=== PATIENT | female | born 1985 | race Caucasian/White ===

== ENCOUNTER 2022-08-20 10:30 | Emergency (ER) | payer OTHER, SELFPAY ==
[2022-08-20 10:40] VITALS: BP 121/81; PULSE 90; RESP 18; TEMP 36.8; O2SAT 100
--- NOTE | 2022-08-20 11:13 | ED.URI ---
HPI - URI/Sore Throat General Chief Complaint: Upper Respiratory Infection Stated Complaint: Sore Throat,Bilateral Ear Irritation Time Seen by Provider: 08/20/22 11:05 Source: patient Mode of arrival: ambulatory Limitations: no limitations History of Present Illness HPI Narrative: Patient presents today complaining of a sore throat and bilateral ear pain since yesterday with fever up to 100.9. Denies cough, congestion, rhinorrhea, or any additional symptoms. She currently rates her pain 6/10 and has been taking DayQuil and NyQuil with some mild relief. No recent antibiotic use. Related Data Allergies Allergy/AdvReac Type Severity Reaction Status Date / Time No Known Allergies Allergy Verified 08/20/22 10:55 Review of Systems Review of Systems: CONSTITUTIONAL: Denies body aches, chills, or sweats.+ fever EYES: Denies visual changes, redness, or discharge. ENT: Denies rhinorrhea, congestion. + sore throat, bilateral ear pain CARDIOVASCULAR: Denies chest pain, palpitations, or edema. RESPIRATORY: Denies cough or dyspnea. GASTROINTESTINAL: Denies abdominal pain, nausea, vomiting, or diarrhea. GENITOURINARY: Denies dysuria or hematuria. SKIN: Denies rash, itching, or wounds. MUSCULOSKELETAL: Denies back pain, joint pain, or myalgia. NEUROLOGIC: Denies headache, numbness, tingling, or weakness. PSYCH: Denies depression or anxiety. [facility] Past Medical History Medical History Asthma Seasonal allergies Surgical History Surgical History Previous section (~2014) [place] teeth removed (~2006) Family History Family History Father Hypertension Heart disease Mother No problems noted. Grandparent Cerebrovascular accident Malignant neoplasm of prostate Glaucoma Social History Social History Smoking status: Former smoker Tobacco type: cigarettes Second hand tobacco smoke exposure: Yes Smoking end date: 10/05/13 Alcohol intake: current Drinks per week: 4 Alcohol use details: drinks wine weekly Comments At time of signature, I have reviewed and agree with nursing past medical, surgical, social and family history unless otherwise noted. Please see nursing chart for further information. There is no relevant family history pertinent to the presenting complaint Exam Narrative: GENERAL: Mildly ill-appearing, well-nourished, and in no acute distress. HEAD: Normocephalic, atraumatic. EYES: EOMI. No redness or drainage. Conjunctivae normal. ENT: Mucous membranes pink and moist. Nares clear. No rhinorrhea. TMs normal bilaterally. Throat erythematous and edematous. Tonsils 3+ with white exudate. Uvula midline. NECK: Normal AROM. Supple. Bilateral anterior cervical chain lymphadenopathy. CHEST: No respiratory distress. Clear to auscultation. HEART: Regular rate and rhythm. No murmur appreciated. Normal peripheral pulses. EXTREMITIES: Normal range of motion. No edema. SKIN: Warm, dry, no rash. Capillary refill normal. Normal skin turgor. NEURO: No focal deficits. Alert and oriented x3. Gait steady. PSYCH: Normal affect. No signs of depression or anxiety. Course Course Emergency Course: We are out of strep swabs at this time. Due to patient's symptoms and exam, I feel strongly that she has strep throat and will be treated accordingly. Level of Care: Express Care Visit Vital Signs Vital signs: Vital Signs Temperature 98.3 F 08/20/22 10:40 Pulse Rate 90 08/20/22 10:40 Respiratory Rate 18 08/20/22 10:40 Blood Pressure 121/81 08/20/22 10:40 Pulse Oximetry 100 08/20/22 10:40 Oxygen Delivery Room Air 08/20/22 10:40 Temperature 98.3 F 08/20/22 10:40 Pulse Rate 90 08/20/22 10:40 Respiratory Rate 18 08/20/22 10:40 B
== END 2022-08-20 11:24 | disposition home or self-care (01) ==
PROVIDERS: Emergency Provider Nurse Practitioner; PCP Physician Assistant
DX: J02.0 Streptococcal pharyngitis (principal); J45.909 Unspecified asthma, uncomplicated; Z87.891 Personal history of nicotine dependence
CPT/HCPCS: 99213; G0463

== ENCOUNTER 2023-09-05 14:53 | Emergency (ER) | payer OTHER, SELFPAY ==
[2023-09-05 15:20] VITALS: BP 144/103; PULSE 102; RESP 18; TEMP 37; O2SAT 100
--- NOTE | 2023-09-05 15:30 | ED.URI ---
HPI - URI/Sore Throat General Chief Complaint: Upper Respiratory Infection Stated Complaint: sorethroat Time Seen by Provider: 09/05/23 15:30 Source: patient Mode of arrival: ambulatory Limitations: no limitations History of Present Illness HPI Narrative: Hortencia is a 37 year old female patient presenting to clinic today with complaints of a sore throat that started last night. Denies any fever or chills. MD elicited complaint: sore throat and nasal congestion Related Data Allergies Allergy/AdvReac Type Severity Reaction Status Date / Time No Known Allergies Allergy Verified 08/20/22 10:55 Review of Systems Review of Systems: Pertinent positives per HPI. Patient denies any fever, chills, rash, headache, visual changes, dizziness, cough, shortness of breath, chest pain, palpitations, nausea, vomiting, diarrhea, constipation, abdominal pain, or any urinary issues. PMFSH Past Medical History Medical History Asthma Seasonal allergies Surgical History Surgical History Previous section (~2014) [place] teeth removed (~2006) Family History Family History Father Hypertension Heart disease Mother No problems noted. Grandparent Cerebrovascular accident Malignant neoplasm of prostate Glaucoma Social History Social History Smoking status: Former smoker Tobacco type: cigarettes Second hand tobacco smoke exposure: Yes Smoking end date: 10/05/13 Alcohol intake: current Drinks per week: 4 Alcohol use details: drinks wine weekly Comments At the time of my signature, I reviewed and agree with the nursing past medical, surgical, social, and family history. There is no relevant family history pertinent to the patient complaint. Exam Narrative: General: Well-developed, well nourished, in no apparent distress Head: Normocephalic, atraumatic Eyes: Pupils equally round and reactive to light bilaterally, EOM intact, sclera and conjunctive clear, no discharge, lids normal Ears: TMs intact and clear, ear canals clear, no drainage, grossly hearing normal. Nose: Nares patent, clear nasal discharge, no inflammation, no sinus tenderness. Mouth: Oral pharynx red with bilateral tonsillar enlarged without lesions or masses, good dentition, MMM. Neck: Supple, trachea midline, enlargement of anterior cervical nodes, no thyroid masses or goiter palpable. Cardio: Regular rate and rhythm, s1 and s2 normal, no murmur appreciated. Resp: Clear to auscultation bilaterally, no rhonchi, rales, wheezing or rubs Course Course Emergency Course: Portions of this record may have been created with voice recognition software. Level of Care: Express Care Visit Vital Signs Vital signs: Vital Signs Temperature 37.0 C 09/05/23 15:20 Pulse Rate 102 H 09/05/23 15:20 Respiratory Rate 18 09/05/23 15:20 Blood Pressure 144/103 H 09/05/23 15:20 Pulse Oximetry 100 09/05/23 15:20 Oxygen Delivery Room Air 09/05/23 15:20 Temperature 37.0 C 09/05/23 15:20 Pulse Rate 102 H 09/05/23 15:20 Respiratory Rate 18 09/05/23 15:20 Blood Pressure 144/103 H 09/05/23 15:20 Pulse Oximetry 100 09/05/23 15:20 Oxygen Delivery Room Air 09/05/23 15:20 Vital signs reviewed MDM - URI/Sore Throat MDM Narrative Medical decision making narrative: At the time of visit patient is resting comfortably on the exam table. Patient appears to be nontoxic. Strep test was positive in the clinic today. Prescription for amoxicillin was sent to the pharmacy supportive measures were discussed with the patient and they voiced understanding discharge instructions and agrees to treatment plan. Return precautions reviewed Differential Diagnosis Differential diagnosis: Likely
== END 2023-09-05 15:52 | disposition home or self-care (01) ==
PROVIDERS: Emergency Provider Nurse Practitioner Family; PCP Family Medicine
DX: J02.0 Streptococcal pharyngitis (principal); Z87.891 Personal history of nicotine dependence
CPT/HCPCS: 87880; 99213; G0463

== ENCOUNTER 2024-01-22 08:54 | Emergency (ER) | payer OTHER, SELFPAY ==
[2024-01-22 09:18] VITALS: BP 134/87; PULSE 101; RESP 16; TEMP 36.8; O2SAT 99
--- NOTE | 2024-01-22 09:18 | ED.URI ---
HPI - URI/Sore Throat General Chief Complaint: Upper Respiratory Infection Stated Complaint: sorethroat Time Seen by Provider: 01/22/24 09:18 History of Present Illness HPI Narrative: 38-year-old female presented for complaint of sore throat, onset last night. She states she woke in the night due to the pain, took ibuprofen and woke in the morning with sweating. Denies shortness of breath, wheezing, nausea, vomiting, diarrhea or lethargy. Denies known sick contacts. History of strep throat states it feels similar. Related Data Allergies Allergy/AdvReac Type Severity Reaction Status Date / Time No Known Allergies Allergy Verified 01/22/24 09:11 Review of Systems Review of Systems: CONSTITUTIONAL: Denies body aches, reports fever, chills, sweats. EYES: Denies visual changes, redness, or discharge. ENT: Reports sore throat Denies rhinorrhea, congestion, or otalgia. CARDIOVASCULAR: Denies chest pain, palpitations, or edema. RESPIRATORY: Denies dyspnea. GASTROINTESTINAL: Denies abdominal pain, nausea, vomiting, or diarrhea. SKIN: Denies rash, itching, or wounds. MUSCULOSKELETAL: Denies back pain, joint pain, or myalgia. NEUROLOGIC: Denies headache PMFSH Past Medical History Medical History Asthma Seasonal allergies Surgical History Surgical History Previous section (~2014) [place] teeth removed (~2006) Family History Family History Father Hypertension Heart disease Mother No problems noted. Grandparent Cerebrovascular accident Malignant neoplasm of prostate Glaucoma Social History Social History Smoking status: Former smoker Tobacco type: cigarettes Second hand tobacco smoke exposure: Yes Smoking end date: 10/05/13 Alcohol intake: current Drinks per week: 4 Alcohol use details: drinks wine weekly Exam Narrative: GENERAL: well-appearing, no acute distress. EYES: conjunctivae clear ENT: Mucous membranes moist. TMs pearly davis with normal light reflex bilaterally; no tragal tenderness. Oropharynx erythematous without lesions. Tonsils enlarged 1+ and without exudate. No drooling, no hoarseness, no trismus, uvula midline. No tripod positioning, hot potato voice, or soft palate swelling. NECK: Supple. right anterior cervical lymphadenopathy CHEST: Clear to auscultation, breath sounds equal. No respiratory distress, speaks in full sentences. HEART: Regular rate and rhythm. No murmur heard. SKIN: Warm, dry, no rash. NEURO: Alert and oriented x3. Course Course Emergency Course: Patient is aware of diagnosis, understands and agrees to treatment plan. Anticipatory guidance given. Patient agrees to follow-up as directed and is aware of reasons to seek care at the emergency department. Portions of this record may have been created with voice recognition software Level of Care: Express Care Visit Vital Signs Vital signs: Vital Signs Temperature 98.2 F 01/22/24 09:18 Pulse Rate 101 H 01/22/24 09:18 Respiratory Rate 16 01/22/24 09:18 Blood Pressure 134/87 01/22/24 09:18 Pulse Oximetry 99 01/22/24 09:18 Oxygen Delivery Room Air 01/22/24 09:18 Temperature 98.2 F 01/22/24 09:18 Pulse Rate 101 H 01/22/24 09:18 Respiratory Rate 16 01/22/24 09:18 Blood Pressure 134/87 01/22/24 09:18 Pulse Oximetry 99 01/22/24 09:18 Oxygen Delivery Room Air 01/22/24 09:18 MDM - URI/Sore Throat MDM Narrative Medical decision making narrative: POS strep result reviewed with pt. Advise supportive treatments. Patient is appropriate for outpatient treatment and follow-up. Differential Diagnosis Differential diagnosis: Likely upper respiratory infection, viral infection and pharyngitis Lab Data Labs: Strep Sc
== END 2024-01-22 09:36 | disposition home or self-care (01) ==
PROVIDERS: Emergency Provider Nurse Practitioner Family
DX: J02.0 Streptococcal pharyngitis (principal); Z87.891 Personal history of nicotine dependence; J45.909 Unspecified asthma, uncomplicated
CPT/HCPCS: 87880; 99213; G0463

== ENCOUNTER 2024-06-21 16:02 | Outpatient (CLI) | payer OTHER, SELFPAY ==
--- NOTE | ~2024-06-21 | XR_ITS ---
CHEST RADIOGRAPH, PA AND LATERAL CLINICAL HISTORY: R06.00 - Dyspnea, unspecified . COMPARISON: None available TECHNIQUE: PA and lateral views of the chest. FINDINGS The cardiomediastinal silhouette is unremarkable. Increased density projecting over the left lower lobe, which on lateral view suggests superior segmen t of the left lower lobe. The remainder of the lungs are clear. Visualized osseous structures and soft tissues are unremarkable. IMPRESSION: Possible early infiltrate within the superior segment of the left lower lobe, as detailed above. Reviewed, dictated and finalized at location A. IMPRESSION: Possible early infiltrate within the superior segment of the left lower lobe, a s detailed above.
== END 2024-06-21 16:03 | disposition home or self-care (01) ==
PROVIDERS: PCP Family Medicine; Visit Provider Family Medicine
DX: R06.00 Dyspnea, unspecified (principal)
CPT/HCPCS: 71046

== ENCOUNTER 2024-06-21 16:28 | Outpatient (CLI) | payer OTHER, SELFPAY ==
[2024-06-21 17:34] LABS: Influenza A QL RT-PCR Negative (Negative); Influenza B QL RT-PCR Negative (Negative); RSV RNA, RT-PCR Negative (Negative); SARS-CoV-2 RNA PCR Negative (Negative)
== END 2024-06-21 16:29 | disposition home or self-care (01) ==
LOC: ANHLAB 16:29
PROVIDERS: PCP Family Medicine; Visit Provider Family Medicine
DX: J06.9 Acute upper respiratory infection, unspecified (principal); Z20.822 Contact with and (suspected) exposure to COVID-19
CPT/HCPCS: 87637

== ENCOUNTER 2025-05-08 08:50 | Emergency (ER) | payer OTHER, SELFPAY ==
--- NOTE | ~2025-05-08 | CT_ITS ---
EXAMINATION: CT brain wo con DATE: 05/08/2025 09:33 INDICATION: Dizziness TECHNIQUE: Computed tomography (CT) of the head was performed without intravenous contrast. The dose-length product was 605.33 mGy-cm. COMPARISON: None FINDINGS: No acute intracranial hemorrhage. No mass effect. No midline shift. No hydrocephalus. No skull fracture. Visualized paranasal sinuses and mastoid air cells are clear. IMPRESSION: 1. No acute intracranial hemorrhage. No mass effect. Reviewed, dictated and finalized at location Q.
--- NOTE | ~2025-05-08 | XR_ITS ---
EXAMINATION: XR chest 2V 05/08/2025 09:44 INDICATION: Shortness of breath. TECHNIQUE:Frontal and lateral images of the chest were obtained. COMPARISON: 06/21/2024 FINDINGS: Small opacities in the lower lungs The cardiomediastinal silhouette is within normal limits. There are no pleural effusions. There is no pneumothorax suspected. IMPRESSION: 1: Small opacities in the mid and lower lungs which represents atelectasis/scarring or infiltrates. Reviewed, dictated and finalized at location Q. IMPRESSION: 1: Small opacities in the mid and lower lungs which represents atelectasis/sca rring or infiltrates.
[2025-05-08 08:52] VITALS: BP 155/94; PULSE 93; RESP 20; TEMP 36.7; O2SAT 99
[2025-05-08 09:00] VITALS: PULSE 93; O2SAT 100
--- NOTE | 2025-05-08 09:16 | ECG_ITS ---
Test Date: 2025-05-08 12:04:40 Measurements Intervals [place] Rate: 84 P: 25 [place]: 153 QRS: -6 QRSD: 85 T: 6 QT: 359 QTc: 425 Interpretive Statements SINUS RHYTHM WITH SINUS ARRHYTHMIA POSSIBLE ANTERIOR MYOCARDIAL INFARCTION , OF INDETERMINATE AGE BORDERLINE ST-T WAVE ABNORMALITY- INFERIOR LEADS BASELINE ARTIFACT- V5-V6 ABNORMAL ECG No previous ECG available for comparison Electronically Signed On 05-08-2025 13:00:09 CDT by Yefri Aguila D.O.
--- NOTE | 2025-05-08 09:16 | ED_ITS ---
HPI - SOB/Dyspnea General Chief Complaint: Shortness of Breath/Dyspnea Stated Complaint: DYSPNEA Time Seen by Provider: 05/08/25 08:51 History of Present Illness HPI Narrative: 39-year-old female no significant medical history on file presents ER with complaints of shortness of breath. Patient reports yesterday having a posterior headache with some mild dizziness. States she woke up this morning with resolved headache but the dizziness was worse. States the dizziness is exacerbated with the of positional changes. Denies vision changes or nausea. Denies striking her head. States the dizziness this morning was so profound that it caused her to get short of breath. Patient admits to breathing quickly, and then experiencing numbness and pain in her hands and her feet. States when EMS arrived, the rapid breathing had improved. Patient denies chest pain, syncope. Denies unilateral weakness. Related Data Allergies Allergy/AdvReac Type Severity Reaction Status Date / Time No Known Allergies Allergy Verified 05/08/25 09:06 Review of Systems 2 Review of Systems: All systems reviewed & are unremarkable except as noted in HPI and below PMFSH Past Medical History Medical History Asthma Seasonal allergies Surgical History Surgical History [place] teeth removed (~2006) Previous section (~2014) Family History Family History Father Hypertension Heart disease Mother No problems noted. Grandparent Cerebrovascular accident Malignant neoplasm of prostate Glaucoma Social History Social History Smoking status: Former smoker Tobacco type: cigarettes Second hand tobacco smoke exposure: Yes Smoking end date: 10/05/13 Alcohol intake: current Drinks per week: 4 Alcohol use details: drinks wine weekly Exam 2 Const: General: healthy appearing and alert Nutritional Appearance: well nourished and obese Orientation/consciousness: patient oriented x3 L imitations: no limitations HENMT: Head: normal to inspection Ears: TM's normal bilaterally Face and sinus: normal facial exam Eyes: Conjunctivae: conjunctivae normal Pupils: Equal, round and reactive pupils present EOM: EOMs intact bilaterally Direct Ophthalmoscopy: no photophobia Resp: Effort & Inspection: normal respiratory effort Auscultation: clear to auscultation bilaterally Cardio: Rate: regular rate Rhythm: regular rhythm Skin: General skin exam: normal color Neuro: General: patient oriented x3, moves all extremities and CN's II-XI intact bilaterally Cranial nerves: Yes Nystagmus not present Speech: n ormal speech Gait exam (Neuro): Normal gait present Extrem: General: normal to inspection Psych: Mental Status: mental status grossly normal Affect: normal affect Attitude: cooperative Course Vital Signs Vital signs: Vital Signs Temperature 36.7 C 05/08/25 08:52 Pulse Rate 93 05/08/25 08:52 Respiratory Rate 20 05/08/25 08:52 Blood Pressure 155/94 H 05/08/25 08:52 Pulse Oximetry 99 05/08/25 08:52 Oxygen Delivery Room Air 05/08/25 08:52 Temperature 36.7 C 05/08/25 08:52 Pulse Rate 93 05/08/25 08:52 Respiratory Rate 20 05/08/25 08:52 Blood Pressure 155/94 H 05/08/25 08:52 Pulse Oximetry 99 05/08/25 08:52 Oxygen Delivery Room Air 05/08/25 08:52 MDM - SOB/Dyspnea MDM Narrative Medical decision making narrative: 39-year-old female presents the ER complaining of positional dizziness since last night. CT scan showed no evidence of acute intracranial abnormality. Chest x-ray showed no acute cardiopulmonary disease. Labs reassuring. Patient was given 1 dose of diazepam and meclizine. On reexamination, patient reported improvement of her symptoms. Differential includes vertigo, CVA, TIA, viral URI, otitis media. Presentation is more consistent with benign positional vertigo. Patient was discharged home with meclizine and recommend follow-up with PCP Lab Data 05/08/25 10:20 05/08/25 10:20 Labs: Lab Results 05/08/25 Range/Units 10:20 WBC 8.2 (4.5-10.0) K/mm3 RBC 4.37 (4.2-5.4) M/mm3 Hgb 13.8 (12.0-15.0) g/dL Hct 40.0 (37.0-47.0) % MCV 91.5 (80-100) fl MCH 31.6 (26-34) pg MCHC 34.5 (32-36) g/dl RDW 12.1 (11.5-14.5) % Plt Count 242 (150-375) k/mm3 MPV 9.4 (7.4-10.4) fl Immature Gran % (Auto) 0.4 (0-0.5) % Neut % (Auto) 73.7 H (45.5-73.1) % Lymph % (Auto) 21.5 (18.3-44.2) % Petroleum % (Auto) 3.3 (2.6-8.5) % Eos % (Auto) 0.7 (0-4.4) % Baso % (Auto) 0.4 (0.2-1.2) % Lymph # (Auto) 1.76 (0.9-3.2) K/mm3 Petroleum # (Auto) 0.3 (0.1-0.6) K/mm3 Eos # (Auto) 0.1 (0-0.3) K/mm3 Baso # (Auto) 0.0 (0.0-0.1) K/mm3 Abs Immat Gran (auto) 0.03 (0.00-0.031) K/mm3 Absolute Neuts (auto) 6.0 (1.3-6.7) K/mm3 Absolute Nucleated RBC 0.000 (0.0-0.012) K/mm3 Nucleated RBC % 0.0 (0.0-0.2) % D-Dimer 0.39 (<0.48) ug/mL Sodium 138 (137-145) mmol/L Potassium 3.9 (3.4-5.0) mmol/L Chloride 111 H (98-107) mmol/L Carbon Dioxide 21 L (22-30) mmol/L Anion Gap 6 (4-12) mmol/L BUN 14 (7-17) mg/dL Creatinine 0.84 (0.7-1.0) mg/dL Estim Creat Clear Calc 79 ml/min Estimated GFR > 60 (59 - ) Glucose 89 (65-110) mg/dL Calcium 9.3 (8.4-10.2) mg/dL Total Bilirubin 0.4 (0.2-1.3) mg/dL AST 26 (14-36) U/L ALT 18 (6-35) U/L Alkaline Phosphatase 49 (38-126) U/L Troponin I < 0.012 (0.000-0.034) ng/mL Total Protein 7.5 (6.3-8.2) g/dL Albumin 4.3 (3.5-5.1) g/dL TSH 0.632 (0.465-4.680) uIU/mL Discharge Plan Discharge Clinical Impression: Benign paroxysmal positional vertigo Patient Disposition: Home Condition: Stable Instructions: Antibiotic Form, Benign Paroxysmal Positional Vertigo (ED), Dizziness (ED) Patient Language: Syriac Prescriptions: New meclizine 25 mg tablet 25 mg PO TID Qty: 21 0RF No Action norethindrone-e.estradiol-iron [Loestrin Fe 1.5/30 (28-Day)] 1.5 mg-30 mcg (21)/75 mg (7) tablet 1 tablet PO DAILY Qty: 28 4RF albuterol sulfate 90 mcg/actuation HFA aerosol inhaler 2 puff inhalation Q4H PRN (Reason: shortness of breath or wheezing) Qty: 8.5 4RF Follow-up/Referrals: Leyla Rodriguez MD [Primary Care Provider, Family Practice] Time of Disposition: 12:28
[2025-05-08] MEDS: diazePAM INJ (*CRX) 10 MG/2 ML SYRINGE 5 MG IV PUSH (09:20)
[2025-05-08 10:24] LABS: Hematocrit 40.0 % (37.0-47.0); Hemoglobin 13.8 g/dL (12.0-15.0); Immature Granulocyte Percent A 0.4 % (0-0.5); Lymphocytes Absolute Auto 1.76 K/mm3 (0.9-3.2); Mean Corpuscular HGB Conc 34.5 g/dl (32-36); Mean Corpuscular Hemoglobin 31.6 pg (26-34); Mean Corpuscular Volume 91.5 fl (80-100); Nucleated Red Blood Cells Absolute Auto 0.000 K/mm3 (0.0-0.012); Nucleated Red Blood Cells Perc 0.0 % (0.0-0.2); Platelet Count Result 242 k/mm3 (150-375); Red Blood Count 4.37 M/mm3 (4.2-5.4); White Blood Count 8.2 K/mm3 (4.5-10.0)
[2025-05-08 10:30] VITALS: BP 141/93; PULSE 86; RESP 14; O2SAT 98
[2025-05-08 10:39] LABS: Alanine Aminotransferase 18 U/L (6-35); Albumin Level 4.3 g/dL (3.5-5.1); Alkaline Phosphatase 49 U/L (38-126); Anion Gap 6 mmol/L (4-12); Aspartate Amino Transferase 26 U/L (14-36); Bilirubin,Total 0.4 mg/dL (0.2-1.3); Blood Urea Nitrogen 14 mg/dL (7-17); Calcium 9.3 mg/dL (8.4-10.2); Carbon Dioxide 21 mmol/L (22-30); Chloride 111 mmol/L (98-107); Estimated CRCL calculation 79 ml/min; Estimated Glomerular Filt Rate > 60; Glucose 89 mg/dL (65-110); Potassium 3.9 mmol/L (3.4-5.0); Sodium 138 mmol/L (137-145); Total Protein 7.5 g/dL (6.3-8.2)
[2025-05-08 10:49] LABS: Troponin I < 0.012 ng/mL (0.000-0.034)
[2025-05-08 11:30] VITALS: BP 127/82; PULSE 79; RESP 18; O2SAT 99
[2025-05-08] MEDS: MECLIZINE HCL 25 MG TABLET PO (12:03)
[2025-05-08 12:19] LABS: Thyroid Stimulating Hormone 0.632 uIU/mL (0.465-4.680)
[2025-05-08 12:30] VITALS: BP 120/80; PULSE 75; RESP 16; O2SAT 99
[2025-05-08 13:23] VITALS: BP 134/78; PULSE 74; RESP 16; O2SAT 99
== END 2025-05-08 13:25 | disposition home or self-care (01) ==
PROVIDERS: Emergency Provider Nurse Practitioner Family; PCP Family Medicine
DX: H81.10 Benign paroxysmal vertigo, unspecified ear (principal); J45.909 Unspecified asthma, uncomplicated; Z87.891 Personal history of nicotine dependence; R94.31 Abnormal electrocardiogram [ECG] [EKG]; Z79.3 Long term (current) use of hormonal contraceptives
CPT/HCPCS: 36415; 70450; 71046; 80053; 84443; 84484; 85025; 85380; 93005; 96374; 99284; A9270; J3360

== ENCOUNTER 2025-06-03 07:08 | Outpatient (CLI) | payer OTHER, SELFPAY ==
[2025-06-03 07:55] LABS: Cholesterol 191 mg/dL (0-200); HDL Direct 47 mg/dL; Triglycerides 114 mg/dL (<150)
== END 2025-06-03 07:09 | disposition home or self-care (01) ==
LOC: ANHLAB 07:10
PROVIDERS: PCP Family Medicine; Visit Provider Internal Medicine Cardiovascular Disease
DX: R42 Dizziness and giddiness (principal)
CPT/HCPCS: 36415; 80061

== ENCOUNTER 2025-06-29 07:28 | Outpatient (CLI) | payer OTHER, SELFPAY ==
--- NOTE | 2025-06-29 08:02 | ECHO_ITS ---
Patient Info Name: Hortencia España Age: 39 years : 1985 Gender: Female Ht: 63 in Wt: 167 lbs BSA: 1.86 m2 HR: 62 bpm BP: 121 / 82 mmHg Technical Quality: Good Exam Date: 06/29/2025 8:21 AM Patient Status: O Admit Date: 06/29/2025 Exam Type: CA echo doppler color flow Complete two-dimensional, color flow and Doppler transthoracic echocardiogram is performed. Theatrical Rigger: Melissa Doherty Attending Provider: Yefri Aguila DO Summary 1. Complete two-dimensional, color flow and Doppler transthoracic echocardiogram is performed. 2. Left ventricular chamber dimension is normal. 3. Left ventricular systolic function is normal, estimated at 60-65. 4. The left ventricular diastolic function is normal. 5. E/e' 4 is not elevated. 6. There is trace tricuspid valve regurgitation. 7. Mild pulmonary hypertension, estimated pulmonary arterial systolic pressure is 45 mmHg. 8. There is trace pulmonic regurgitation. 9. Normal inferior vena cava with >50% collapse upon inspiration consistent with elevated right atrial pressure, 10 mmHg. Left Ventricle E/e' 4 is not elevated. Left ventricular chamber dimension is normal. Left ventricular systolic function is normal, estimated at 60-65. The left ventricular diastolic function is normal. Right Ventricle Right ventricular chamber dimension is normal. Right ventricular systolic function is normal and with normal TAPSE 1.9 cm. Left Atria Left atrial chamber dimension is normal. Right Atria Right atrial chamber dimension is normal. Aortic Valve The aortic valve is trileaflet. There is no aortic valve stenosis. There is no aortic valve regurgitation. Pulmonic Valve There is trace pulmonic regurgitation. Mitral Valve There is no mitral valve stenosis. There is no mitral valve regurgitation. Tricuspid Valve There is trace tricuspid valve regurgitation. Mild pulmonary hypertension, estimated pulmonary arterial systolic pressure is 45 mmHg. Pericardium/Pleural There is no pericardial effusion. Inferior Vena Cava Normal inferior vena cava with >50% collapse upon inspiration consistent with elevated right atrial pressure, 10 mmHg. Aorta The aortic root size at the sinus of Valsalva is normal. Left Ventricular Outflow Tract Name Value Normal LVOT 2D LVOT Diameter 2.0 cm LVOT Doppler LVOT Peak Velocity 117 cm/s LVOT Peak Gradient 6 mmHg LVOT Mean Gradient 3 mmHg LVOT VTI 28 cm LVOT Stroke Volume 88 ml LVOT CO 5.5 l/min LVOT CI 3.0 l/min/m2 Pulmonic Valve Name Value Normal RVOT Doppler RVOT Peak Velocity 93 cm/s RVOT Peak Gradient 3 mmHg PV Doppler PV Peak Velocity 115 cm/s PV Peak Gradient 5 mmHg Mitral Valve Name Value Normal MV Diastolic Function MV E Peak Velocity 82 cm/s MV A Peak Velocity 77 cm/s MV E/A 1.1 MV Decel Time (PW) 234 ms MV Annular TDI MV E/e' (Septal) 6.3 MV E/e' (Lateral) 4.0 MV E/e' (Average) 5.1 Tricuspid Valve Name Value Normal TV Regurgitation Doppler TR Peak Velocity 296 cm/s TR Peak Gradient 35 mmHg Estimated PAP/RSVP RA Pressure 10 mmHg <=5 PA Systolic Pressure 45 mmHg <36 RV Systolic Pressure 45 mmHg <36 Aortic Valve Name Value Normal AV Doppler AV Peak Velocity 156 cm/s AV Peak Gradient 10 mmHg AV Area (Cont Eq Dinh) 2.4 cm2 AV DI (Dinh) 0.75 AV Regurgitation 2D LVOT Area 3.2 cm2 Ventricles Name Value Normal LV Dimensions 2D/MM IVS Diastolic Thickness (2D) 0.7 cm 0.6-1.0 LVID Diastole (2D) 4.2 cm 3.8-5.2 LVIW Diastolic Thickness (2D) 0.9 cm 0.6-0.9 LVID Systole (2D) 2.6 cm 2.2-3.5 LVOT Diameter 2.0 cm LV Mass (2D Cubed) 97.68 g 67.00-162.00 LV Mass Index (2D Cubed) 53 g/m2 43-95 Relative Wall Thickness (2D) 0.41 <=0.42 LV Fractional Shortening/Ejection Fraction 2D/MM LV Fractional Shortening (2D) 37 % 27-45 LV EF (2D Teichholz) 68 % LV Diastolic Volume (4C MOD) 102 ml LV EF (4C MOD) 65 % LV Diastolic Volume (2C MOD) 105 ml LV EF (2C MOD) 68 % LV Diastolic Volume (BP MOD) 103 ml 46-106 LV Diastolic Volume Index (BP MOD) 56 ml/m2 29-61 LV Systolic Volume (BP MOD) 35 ml 14-42 LV Systolic Volume Index (BP MOD) 19 ml/m2 8-24 LV EF (BP MOD) 66 % 54-74 LV Diastolic Length (4C) 8.5 cm LV Systolic Length (4C) 6.7 cm LV Stroke Volume (4C MOD) 66 ml Atria Name Value Normal LA Dimensions LA Volume (4C A-L) 34 ml LA Volume (BP A-L) 40 ml RA Dimensions RA Systolic Major [place] Length (4C) 4.4 cm 2.2-2.8 RA Area (4C) 10.3 cm2 <=18.0 Report Signatures
--- NOTE | 2025-06-29 08:02 | EST_ITS ---
Patient Info Name: Hortencia España Age: 39 years : 1985 Gender: Female Ht: 63 in Wt: 167 lbs BSA: 1.86 m2 HR: 56 bpm BP: 102 / 68 mmHg Exam Date: 06/29/2025 8:02 AM Patient Status: O Admit Date: 06/29/2025 Exam Type: CA stress test treadmill A treadmill exercise stress test was performed. Staff Attending Provider: Yefri Aguila DO Exercise Technologist: Amanda Ge Exercise Physician: Yefri Aguila DO Summary 1. 1. Negative Adam exercise stress test for ischemic ST changes by ECG criteria. 2. 2. Good functional capacity, achieving 12 METs of workload. 3. 3. Appropriate HR response to exercise. 4. 4. Appropriate HR recovery at 1 minute post exercise. 5. 5. No imaging with stress testing. 6. 6. Patient informed of the above results. Protocol: Adam Stress ECG Details Stage: REST Duration (min): 0 min : 55 sec Speed (mph): 0.0 Grade (%): 0 HR (bpm): 57 SBP (mmHg): 102 DBP (mmHg): 68 METS: --- Stage: REST Duration (min): 6 min : 36 sec Speed (mph): 0.0 Grade (%): 0 HR (bpm): 66 SBP (mmHg): 102 DBP (mmHg): 68 METS: --- Stage: STAGE 1 Duration (min): 1 min : 0 sec Speed (mph): 1.7 Grade (%): 10 HR (bpm): 106 SBP (mmHg): 102 DBP (mmHg): 68 METS: --- Stage: STAGE 1 Duration (min): 2 min : 0 sec Speed (mph): 1.7 Grade (%): 10 HR (bpm): 108 SBP (mmHg): 102 DBP (mmHg): 68 METS: --- Stage: STAGE 1 Duration (min): 3 min : 0 sec Speed (mph): 1.7 Grade (%): 10 HR (bpm): 112 SBP (mmHg): 132 DBP (mmHg): 79 METS: --- Stage: STAGE 2 Duration (min): 1 min : 0 sec Speed (mph): 2.5 Grade (%): 12 HR (bpm): 126 SBP (mmHg): 132 DBP (mmHg): 79 METS: --- Stage: STAGE 2 Duration (min): 2 min : 0 sec Speed (mph): 2.5 Grade (%): 12 HR (bpm): 134 SBP (mmHg): 140 DBP (mmHg): 72 METS: --- Stage: STAGE 2 Duration (min): 3 min : 0 sec Speed (mph): 2.5 Grade (%): 12 HR (bpm): 148 SBP (mmHg): 140 DBP (mmHg): 72 METS: --- Stage: STAGE 3 Duration (min): 1 min : 0 sec Speed (mph): 3.4 Grade (%): 14 HR (bpm): 140 SBP (mmHg): 187 DBP (mmHg): 64 METS: --- Stage: STAGE 3 Duration (min): 2 min : 0 sec Speed (mph): 3.4 Grade (%): 14 HR (bpm): 153 SBP (mmHg): 187 DBP (mmHg): 64 METS: --- Stage: STAGE 3 Duration (min): 3 min : 0 sec Speed (mph): 3.4 Grade (%): 14 HR (bpm): 154 SBP (mmHg): 163 DBP (mmHg): 74 METS: --- Stage: STAGE 4 Duration (min): 1 min : 0 sec Speed (mph): 4.2 Grade (%): 16 HR (bpm): 137 SBP (mmHg): 163 DBP (mmHg): 74 METS: --- Stage: STAGE 4 Duration (min): 1 min : 0 sec Speed (mph): 4.2 Grade (%): 16 HR (bpm): 135 SBP (mmHg): 163 DBP (mmHg): 74 METS: --- Stage: RECOVERY Duration (min): 0 min : 59 sec Speed (mph): 0.0 Grade (%): 0 HR (bpm): 135 SBP (mmHg): 163 DBP (mmHg): 74 METS: --- Stage: RECOVERY Duration (min): 1 min : 59 sec Speed (mph): 0.0 Grade (%): 0 HR (bpm): 104 SBP (mmHg): 174 DBP (mmHg): 102 METS: --- Stage: RECOVERY Duration (min): 2 min : 59 sec Speed (mph): 0.0 Grade (%): 0 HR (bpm): 99 SBP (mmHg): 124 DBP (mmHg): 69 METS: --- Stage: RECOVERY Duration (min): 3 min : 59 sec Speed (mph): 0.0 Grade (%): 0 HR (bpm): 89 SBP (mmHg): 124 DBP (mmHg): 69 METS: --- Stage: RECOVERY Duration (min): 4 min : 59 sec Speed (mph): 0.0 Grade (%): 0 HR (bpm): 91 SBP (mmHg): 105 DBP (mmHg): 70 METS: --- Stage: RECOVERY Duration (min): 5 min : 11 sec Speed (mph): 0.0 Grade (%): 0 HR (bpm): 89 SBP (mmHg): 105 DBP (mmHg): 70 METS: --- Rest HR: 66 bpm Peak HR: 164 bpm Rest Sys BP: 102 mmHg Peak Sys BP: 187 mmHg Max Pred HR: 182 bpm % Max Pred HR: 90 % Target HR: 155 bpm Max RPP: 30,668 bpm*mmHg Collins Score: 2 Termination Reason: Reached target heart rate or workload Cardiac Symptoms: Shortness of breath Max ST Seg Deviation: -1.70 mm Total Time: 10 min : 0 sec Rest Cervantes BP: 68 mmHg Peak Cervantes BP: 64 mmHg Angina Score: None Total METS: 12.1 Resting ECG Sinus rhythm. Stress ECG No ST changes. Arrhythmias None. Report Signatures
== END 2025-06-29 07:29 | disposition home or self-care (01) ==
LOC: ANHCARD 07:28
PROVIDERS: PCP Family Medicine; Visit Provider Internal Medicine Cardiovascular Disease
DX: R07.9 Chest pain, unspecified (principal)
CPT/HCPCS: 93017; 93306

== ENCOUNTER 2025-08-05 06:58 | Outpatient (CLI) | payer OTHER, SELFPAY ==
[2025-08-05 07:41] LABS: Alanine Aminotransferase 19 U/L (6-35); Albumin Level 4.1 g/dL (3.5-5.1); Alkaline Phosphatase 51 U/L (38-126); Anion Gap 7 mmol/L (4-12); Aspartate Amino Transferase 24 U/L (14-36); Bilirubin,Total 0.5 mg/dL (0.2-1.3); Blood Urea Nitrogen 14 mg/dL (7-17); Calcium 9.1 mg/dL (8.4-10.2); Carbon Dioxide 27 mmol/L (22-30); Chloride 105 mmol/L (98-107); Estimated Glomerular Filt Rate > 60; Glucose 89 mg/dL (65-110); Potassium 4.0 mmol/L (3.4-5.0); Sodium 139 mmol/L (137-145); Total Protein 7.3 g/dL (6.3-8.2)
[2025-08-05 07:42] LABS: Hemoglobin A1C 5.2 % (<5.7)
== END 2025-08-05 06:59 | disposition home or self-care (01) ==
LOC: ANHLAB 06:59
PROVIDERS: PCP Student in an Organized Health Care Education/Training Program; Visit Provider Student in an Organized Health Care Education/Training Program
DX: Z13.1 Encounter for screening for diabetes mellitus (principal); R42 Dizziness and giddiness; E16.2 Hypoglycemia, unspecified
CPT/HCPCS: 36415; 80053; 83036